=== PATIENT | female | born 1940 | race Caucasian/White ===

== ENCOUNTER 2017-05-02 14:42 | Inpatient (IN) | payer MEDICAID ==
[~2017-05-02] VITALS: Ht 157.5 cm; Wt 94.4 kg
[2017-05-02 16:59] LABS: BASOPHIL % 0.5 % (0-2); PLATELET COUNT 174 x10^3mcL (130-400)
[2017-05-02 17:01] LABS: CALCIUM 9.3 mg/dL (8.5-10.1); CARBON DIOXIDE 27.6 mmol/L (21-32); CHLORIDE SERUM 106 mmol/L (98-107); CREATININE SERUM 0.8 mg/dL (0.6-1.0); GLUCOSE SERUM 100 mg/dL (74-106); POTASSIUM SERUM 3.6 mmol/L (3.5-5.1); SODIUM SERUM 142 mmol/L (136-145)
[2017-05-02 17:05] LABS: ALBUMIN 3.5 g/dL (3.4-5.0); ALKALINE PHOSPHATASE 145 U/L (46-116); ALT/SGPT 20 U/L (14-59); AST/SGOT 17 U/L (15-37); BILIRUBIN TOTAL 0.8 mg/dL (0.20-1.00); TOTAL PROTEIN, SERUM 7.2 g/dL (6.4-8.2)
[2017-05-02] MEDS ORDERED: ASPIR 8181 MG PO (19:23)
[2017-05-02] MEDS ORDERED: SIMVASTATIN20 M1 PO (19:24)
[2017-05-02] MEDS ORDERED: TRAMADOL HCL50 MG PO (19:25)
[2017-05-02] MEDS ORDERED: AMLODIPINE BESY10 M2 PO (19:26)
[2017-05-02] MEDS ORDERED: LOSARTAN POTASS25 M1 PO (19:26)
[2017-05-02] MEDS ORDERED: ZANTAC 150150 MG PO (19:27)
[2017-05-02] MEDS ORDERED: TOPROL XL25 MG PO (19:28)
[2017-05-02 21:09] VITALS: BP 173/82
[2017-05-02 22:13] LABS: FREE T4 1.28 ng/dL (0.76-1.46); T3 TOTAL 0.96 ng/mL; T4(THYROXINE) 9.3 ug/dL (4.7-13.3)
[2017-05-02 22:43] VITALS: BP 141/74
[2017-05-02 22:50] LABS: CHOLESTEROL/HDL RATIO 3.1
[2017-05-03 06:27] VITALS: BP 148/66
[2017-05-03 06:34] LABS: CALCIUM 9.2 mg/dL (8.5-10.1); CARBON DIOXIDE 27.1 mmol/L (21-32); CHLORIDE SERUM 110 mmol/L (98-107); CREATININE SERUM 0.6 mg/dL (0.6-1.0); GLUCOSE SERUM 91 mg/dL (74-106); MAGNESIUM 1.8 mg/dL (1.8-2.4); PHOSPHOROUS 2.8 mg/dL (2.5-4.9); POTASSIUM SERUM 3.2 mmol/L (3.5-5.1); SODIUM SERUM 145 mmol/L (136-145)
[2017-05-03 06:36] LABS: BASOPHIL % 0.5 % (0-2); PLATELET COUNT 163 x10^3mcL (130-400)
[2017-05-03 08:50] VITALS: Ht 157.5 cm; Wt 94.4 kg
[2017-05-03 09:46] VITALS: BP 121/40
[2017-05-03 14:00] VITALS: BP 125/57
[2017-05-03 16:22] LABS: microscopic required? NO
[2017-05-03 16:28] LABS: UA SPECIFIC GRAVITY 1.015 (1.005-1.035); urine erythrocyte NEGATIVE (NEGATIVE)
[2017-05-03 18:01] VITALS: BP 137/61
[2017-05-03 20:41] VITALS: BP 148/87
[2017-05-04 05:45] VITALS: BP 140/68
[2017-05-04 06:21] LABS: BASOPHIL % 0.5 % (0-2); RED CELL DISTRIBUTION WIDTH 13.9 % (11.5-14.5)
[2017-05-04 06:30] LABS: CALCIUM 8.8 mg/dL (8.5-10.1); CARBON DIOXIDE 26.4 mmol/L (21-32); CHLORIDE SERUM 110 mmol/L (98-107); CREATININE SERUM 0.8 mg/dL (0.6-1.0); GLUCOSE SERUM 92 mg/dL (74-106); POTASSIUM SERUM 3.5 mmol/L (3.5-5.1); SODIUM SERUM 146 mmol/L (136-145)
[2017-05-04 09:17] VITALS: BP 135/51
[2017-05-04 11:06] LABS: PLATELET COUNT 184 x10^3mcL (130-400)
[2017-05-04 13:52] VITALS: BP 126/91
[2017-05-04 15:00] VITALS: BP 126/91
== END 2017-05-04 15:31 | disposition home or self-care (01) | DRG 203 ==
LOC: ED 14:42 → DU 19:14
PROVIDERS: ADMIT Family Medicine
DX: M94.0 Chondrocostal junction syndrome [Tietze] (principal); I48.91 Unspecified atrial fibrillation; D64.9 Anemia, unspecified; I10 Essential (primary) hypertension; K29.70 Gastritis, unspecified, without bleeding; I49.1 Atrial premature depolarization; I49.3 Ventricular premature depolarization; M81.0 Age-related osteoporosis without current pathological fracture; E66.9 Obesity, unspecified; H54.41 Blindness, right eye, normal vision left eye; E87.6 Hypokalemia; I73.9 Peripheral vascular disease, unspecified; Z79.82 Long term (current) use of aspirin; Z68.37 Body mass index [BMI] 37.0-37.9, adult
CPT/HCPCS: 83880; 84439; J1885; J1940; J7030; Q0092

== ENCOUNTER 2017-05-20 04:59 | Emergency (ER) | payer MEDICAID ==
[~2017-05-20 04:59] MED LIST: AMLODIPINE BESY10 M2 PO; ASPIR 8181 MG PO; LOSARTAN POTASS25 M1 PO; SIMVASTATIN20 M1 PO; TOPROL XL25 MG PO; TRAMADOL HCL50 MG PO; ZANTAC 150150 MG PO
[2017-05-20 07:07] LABS: microscopic required? NO
[2017-05-20 07:08] LABS: CALCIUM 9.2 mg/dL (8.5-10.1); CARBON DIOXIDE 27.4 mmol/L (21-32); CHLORIDE SERUM 104 mmol/L (98-107); CREATININE SERUM 0.8 mg/dL (0.6-1.0); GLUCOSE SERUM 105 mg/dL (74-106); POTASSIUM SERUM 3.9 mmol/L (3.5-5.1); SODIUM SERUM 140 mmol/L (136-145)
[2017-05-20 07:11] LABS: BASOPHIL % 0.5 % (0-2); PLATELET COUNT 184 x10^3mcL (130-400)
[2017-05-20 07:19] LABS: ALBUMIN 3.1 g/dL (3.4-5.0); ALKALINE PHOSPHATASE 123 U/L (46-116); ALT/SGPT 23 U/L (14-59); AMYLASE 43 U/L (25-115); AST/SGOT 18 U/L (15-37); BILIRUBIN TOTAL 0.53 mg/dL (0.20-1.00); CHOLESTEROL 109 mg/dL (<200); HDL CHOLESTEROL 43 mg/dL (40-60); LIPASE 102 IU/L (73-393); MAGNESIUM 1.7 mg/dL (1.8-2.4); T4(THYROXINE) 9.4 ug/dL (4.7-13.3); TOTAL PROTEIN, SERUM 6.6 g/dL (6.4-8.2)
[2017-05-20] MEDS ORDERED: LASIX20 MG PO (07:45)
[2017-05-20] MEDS ORDERED: GOOD SENSE OMEP20 MG PO (07:46)
[2017-05-20 07:49] LABS: urine erythrocyte NEGATIVE (NEGATIVE)
[2017-05-20 08:09] LABS: AMPHETAMINE QUAL UR NONE DETECTED (NEG <=1000)
[2017-05-20 10:57] VITALS: BP 121/56
== END 2017-05-20 10:57 | disposition home or self-care (01) ==
LOC: ED 04:59
PROVIDERS: Emergency Medicine
DX: R07.89 Other chest pain (principal); E78.00 Pure hypercholesterolemia, unspecified; I10 Essential (primary) hypertension
CPT/HCPCS: 83880; J1940

== ENCOUNTER 2017-10-02 13:22 | Inpatient (IN) | payer MEDICAID ==
[~2017-10-02] VITALS: Ht 157.5 cm; Wt 85.5 kg
[~2017-10-02 13:22] MED LIST changes: +GOOD SENSE OMEP20 MG PO; +LASIX20 MG PO
[2017-10-02 14:36] LABS: microscopic required? NO
[2017-10-02 14:39] LABS: BASOPHIL % 0.5 % (0-2); PLATELET COUNT 164 x10^3mcL (130-400)
[2017-10-02 14:45] LABS: CALCIUM 9.2 mg/dL (8.5-10.1); CARBON DIOXIDE 31.8 mmol/L (21-32); CHLORIDE SERUM 106 mmol/L (98-107); CREATININE SERUM 0.8 mg/dL (0.6-1.0); GLUCOSE SERUM 111 mg/dL (74-106); POTASSIUM SERUM 3.8 mmol/L (3.5-5.1); SODIUM SERUM 142 mmol/L (136-145)
[2017-10-02 14:46] LABS: RED CELL DISTRIBUTION WIDTH 14.8 % (11.5-14.5)
[2017-10-02 14:49] LABS: ALBUMIN 3.1 g/dL (3.4-5.0); ALKALINE PHOSPHATASE 121 U/L (46-116); ALT/SGPT 24 U/L (14-59); AMYLASE 45 U/L (25-115); AST/SGOT 18 U/L (15-37); BILIRUBIN TOTAL 0.6 mg/dL (0.20-1.00); CHOLESTEROL 140 mg/dL (<200); HDL CHOLESTEROL 42 mg/dL (40-60); LIPASE 107 IU/L (73-393); TOTAL PROTEIN, SERUM 6.7 g/dL (6.4-8.2)
[2017-10-02 14:51] LABS: UA SPECIFIC GRAVITY <=1.005 (1.005-1.035); urine erythrocyte NEGATIVE (NEGATIVE)
[2017-10-02 15:05] LABS: AMPHETAMINE QUAL UR NONE DETECTED (NEG <=1000)
[2017-10-02] MEDS ORDERED: NEURONTIN300 MG PO (15:50)
[2017-10-02 17:03] LABS: MAGNESIUM 1.9 mg/dL (1.8-2.4); PHOSPHOROUS 3.7 mg/dL (2.5-4.9)
[2017-10-02 17:11] VITALS: BP 196/80
[2017-10-02 17:12] LABS: T3 TOTAL 1.02 ng/mL
[2017-10-02 17:15] LABS: FREE T4 1.07 ng/dL (0.76-1.46); FREE THYROXINE INDEX 2.7 ug/dL (1.4-4.5); T4(THYROXINE) 8.3 ug/dL (4.7-13.3)
[2017-10-02 18:25] VITALS: BP 169/70
[2017-10-02 18:55] VITALS: BP 147/63
[2017-10-02 20:57] VITALS: BP 128/51
[2017-10-02 22:20] VITALS: BP 124/53
[2017-10-03 02:00] VITALS: BP 129/53
[2017-10-03 05:42] VITALS: BP 124/54
[2017-10-03 06:17] LABS: BASOPHIL % 0.4 % (0-2); PLATELET COUNT 133 x10^3mcL (130-400)
[2017-10-03 06:48] LABS: RED CELL DISTRIBUTION WIDTH 15.7 % (11.5-14.5)
[2017-10-03 06:49] LABS: CARBON DIOXIDE 30.8 mmol/L (21-32); CHLORIDE SERUM 110 mmol/L (98-107); CREATININE SERUM 0.8 mg/dL (0.6-1.0); GLUCOSE SERUM 84 mg/dL (74-106); HDL CHOLESTEROL 37 mg/dL (40-60); POTASSIUM SERUM 3.8 mmol/L (3.5-5.1); SODIUM SERUM 143 mmol/L (136-145); TRIGLYCERIDES 136 mg/dL (<150)
[2017-10-03 06:50] LABS: CHOLESTEROL 116 mg/dL (<200); CHOLESTEROL/HDL RATIO 3.1
[2017-10-03 08:15] VITALS: BP 146/54
[2017-10-03] MEDS ORDERED: TOPCARE OMEPRAZ20 MG PO (12:46)
[2017-10-03 13:07] VITALS: BP 123/48
[2017-10-03 13:29] VITALS: BP 123/48
== END 2017-10-03 15:40 | disposition home or self-care (01) | DRG 243 ==
LOC: ED 13:22 → DU 15:41
PROVIDERS: Emergency Medicine; ADMIT Student in an Organized Health Care Education/Training Program
DX: K21.9 Gastro-esophageal reflux disease without esophagitis (principal); E44.0 Moderate protein-calorie malnutrition; I70.1 Atherosclerosis of renal artery; I16.0 Hypertensive urgency; D50.9 Iron deficiency anemia, unspecified; M81.0 Age-related osteoporosis without current pathological fracture; E78.5 Hyperlipidemia, unspecified; H26.8 Other specified cataract; Z79.82 Long term (current) use of aspirin
CPT/HCPCS: 83880; 84439; J0360; J1885; J2060; Q0092